=== PATIENT | male | born 1950 | race Caucasian/White ===

== ENCOUNTER 2018-01-02 15:05 | Emergency (ER) | payer MEDICARE ==
[~2018-01-02] VITALS: Ht 190.5 cm; Wt 117.0 kg
[~2018-01-02 15:05] MED LIST: AMLODIPINE-OLM1 EAC1 PO; ASPI81CH PO; ATOR20 PO; Aspirin EC81 MG PO; CLON.1 PO; CLON.5 PO; CODACE30 PO; ENALAPRIL MALEA PO; FAMO20 PO; HYDCHL25 PO; HYDMOR2 PO; HYDR-86 PO; HYDR1TAB94 PO; LIDO5TP TOP; LISI20 PO; LORA.5 PO; LORA1 PO; LOSA50 PO; MECL12.5 PO; METCAR750 PO; Metoprolol Tart50 MG PO; NEBI10 PO; SENEXON-S TABL1 EACH; Zofran Odt4 MG SL
[2018-01-02] MEDS ORDERED: GABA400 PO (15:21)
[2018-01-02 15:52] LABS: BASOPHILS ABSOLUTE AUTO 0.04 K/mm3 (0.00-0.23); BASOPHILS PERCENT AUTO 1 % (0-2); EOSINOPHILS ABSOLUTE AUTO 0.08 K/mm3 (0.00-0.68); EOSINOPHILS PERCENT AUTO 1 % (0-6); Hematocrit 47.2 % (37.0-53.0); IMMATURE GRAN ABSOLUTE AUTO 0.01 K/mm3 (0.00-0.10); IMMATURE GRAN PERCENT AUTO 0 % (0-1); LYMPHOCYTES ABSOLUTE AUTO 2.41 K/mm3 (0.84-5.20); LYMPHOCYTES PERCENT AUTO 37 % (21-46); MONOCYTES ABSOLUTE AUTO 0.51 K/mm3 (0.16-1.47); MONOCYTES PERCENT AUTO 8 % (4-13); Mean Corpuscular HGB 33.2 pg (26.0-34.0); Mean Corpuscular HGB Conc 33.9 g/dL (31.5-36.5); Mean Corpuscular Volume 98 fL (80-100); Mean Platelet Volume 10.8 fL (9.1-12.4); NEUTROPHILS ABSOLUTE AUTO 3.46 K/mm3 (1.96-9.15); NEUTROPHILS PERCENT AUTO 53 % (41-73); Platelet Count 234 K/mm3 (150-400); RDW Coefficient Variation 12.6 % (11.7-14.2); RDW Standard Deviation 45.2 fL (35.1-46.3); Red Blood Cell Count 4.82 M/mm3 (4.30-5.90); White Blood Cell Count 6.51 K/mm3 (4.00-11.30)
[2018-01-02 18:01] LABS: Alanine Aminotransfer (ALT/SGP 44 U/L (12-78); Albumin, Blood 4.5 g/dL (3.4-5.0); Albumin/Globulin Ratio 1.3 (0.8-1.8); Alk Phos 68 U/L (50-136); Anion Gap 4 mmol/L (6-16); Aspartate Aminotrans (AST/SGOT 32 U/L (12-37); Bilirubin, Total 0.6 mg/dL (0.1-1.0); Blood Urea Nitrogen 18 mg/dL (8-24); Bun/Creatinine Ratio 14.4 (12.0-20.0); CO2, Blood 29 mmol/L (21-32); Calcium, Blood 9.2 mg/dL (8.5-10.1); Chloride, Blood 107 mmol/L (98-108); Creatinine, Blood 1.25 mg/dL (0.60-1.20); Globulin, Blood 3.5 g/dL (2.2-4.0); Glomerular Filtration Rate >60 (60-); Glucose, Blood 86 mg/dL (70-99); Sodium, Blood 140 mmol/L (136-145)
== END 2018-01-02 21:39 | disposition home or self-care (01) ==
LOC: ER 15:05
PROVIDERS: Emergency Medicine
DX: R07.89 Other chest pain (principal); I10 Essential (primary) hypertension; Z87.891 Personal history of nicotine dependence; Z91.011 Allergy to milk products; Z88.6 Allergy status to analgesic agent; Z79.82 Long term (current) use of aspirin; Z79.899 Other long term (current) drug therapy
CPT/HCPCS: 36415; 71046; 80053; 83880; 84484; 85025; 93005; 93010; 99283

== ENCOUNTER 2020-01-11 09:33 | Emergency (ER) | payer MEDICARE ==
[~2020-01-11] VITALS: Ht 190.5 cm; Wt 108.9 kg
[~2020-01-11 09:33] MED LIST changes: +GABA400 PO
[2020-01-11] MEDS ORDERED: Venlafaxine HC225 MG PO (09:43)
[2020-01-11] MEDS ORDERED: Guanfacine HCl2 MG PO (09:43)
[2020-01-11 10:04] LABS: BASOPHILS ABSOLUTE AUTO 0.06 K/mm3 (0.00-0.23); BASOPHILS PERCENT AUTO 1 % (0-2); EOSINOPHILS ABSOLUTE AUTO 0.08 K/mm3 (0.00-0.68); EOSINOPHILS PERCENT AUTO 1 % (0-6); Hematocrit 41.5 % (37.0-53.0); IMMATURE GRAN ABSOLUTE AUTO 0.01 K/mm3 (0.00-0.10); IMMATURE GRAN PERCENT AUTO 0 % (0-1); LYMPHOCYTES ABSOLUTE AUTO 1.82 K/mm3 (0.84-5.20); LYMPHOCYTES PERCENT AUTO 25 % (21-46); MONOCYTES ABSOLUTE AUTO 0.52 K/mm3 (0.16-1.47); MONOCYTES PERCENT AUTO 7 % (4-13); Mean Corpuscular HGB 32.9 pg (26.0-34.0); Mean Corpuscular HGB Conc 33.7 g/dL (31.5-36.5); Mean Corpuscular Volume 97 fL (80-100); Mean Platelet Volume 11.3 fL (9.1-12.4); NEUTROPHILS ABSOLUTE AUTO 4.73 K/mm3 (1.96-9.15); NEUTROPHILS PERCENT AUTO 66 % (41-73); Platelet Count 181 K/mm3 (150-400); RDW Coefficient Variation 12.7 % (11.7-14.2); RDW Standard Deviation 45.3 fL (35.1-46.3); Red Blood Cell Count 4.26 M/mm3 (4.30-5.90); White Blood Cell Count 7.22 K/mm3 (4.00-11.30)
[2020-01-11 10:24] LABS: Alanine Aminotransfer (ALT/SGP 27 U/L (12-78); Albumin, Blood 3.6 g/dL (3.4-5.0); Albumin/Globulin Ratio 1.2 (0.8-1.8); Alk Phos 61 U/L (50-136); Anion Gap 4 mmol/L (6-16); Aspartate Aminotrans (AST/SGOT 21 U/L (12-37); Bilirubin, Total 0.7 mg/dL (0.1-1.0); Blood Urea Nitrogen 15 mg/dL (8-24); Bun/Creatinine Ratio 14.7 (12.0-20.0); CO2, Blood 27 mmol/L (21-32); Calcium, Blood 8.3 mg/dL (8.5-10.1); Chloride, Blood 109 mmol/L (98-108); Creatinine, Blood 1.02 mg/dL (0.60-1.20); Glomerular Filtration Rate >60 (60-); Glucose, Blood 95 mg/dL (70-99); Potassium, Blood 4.3 mmol/L (3.5-5.5); Sodium, Blood 140 mmol/L (136-145); Total Protein, Blood 6.6 g/dL (6.4-8.2); Troponin I <0.015 ng/mL (0.000-0.040)
[2020-01-11] MEDS ORDERED: Lasix20 MG PO (11:32)
[2020-01-11] MEDS ORDERED: K-Dur10 MEQ PO (11:32)
== END 2020-01-11 12:40 | disposition home or self-care (01) ==
LOC: ER 09:33
PROVIDERS: Physician Assistant
DX: I11.0 Hypertensive heart disease with heart failure (principal); I50.9 Heart failure, unspecified; F41.9 Anxiety disorder, unspecified; R06.01 Orthopnea; I25.10 Atherosclerotic heart disease of native coronary artery without angina pectoris; Z88.6 Allergy status to analgesic agent; Z91.011 Allergy to milk products; Z79.82 Long term (current) use of aspirin; Z79.899 Other long term (current) drug therapy
CPT/HCPCS: 71046; 80053; 83880; 84484; 85025; 93005; 93010; 96374; 96375; 99285-25; J1940; J2060

== ENCOUNTER 2020-02-24 14:55 | Emergency (ER) | payer MEDICARE ==
[~2020-02-24] VITALS: Ht 182.9 cm; Wt 97.5 kg
[~2020-02-24 14:55] MED LIST changes: +Guanfacine HCl2 MG PO; +K-Dur10 MEQ PO; +Lasix20 MG PO; +Venlafaxine HC225 MG PO
[2020-02-24 15:44] LABS: BASOPHILS ABSOLUTE AUTO 0.03 K/mm3 (0.00-0.23); BASOPHILS PERCENT AUTO 1 % (0-2); EOSINOPHILS ABSOLUTE AUTO 0.08 K/mm3 (0.00-0.68); EOSINOPHILS PERCENT AUTO 1 % (0-6); Hemoglobin 13.2 g/dL (13.5-17.5); IMMATURE GRAN ABSOLUTE AUTO 0.02 K/mm3 (0.00-0.10); IMMATURE GRAN PERCENT AUTO 0 % (0-1); LYMPHOCYTES ABSOLUTE AUTO 1.63 K/mm3 (0.84-5.20); LYMPHOCYTES PERCENT AUTO 29 % (21-46); MONOCYTES ABSOLUTE AUTO 0.84 K/mm3 (0.16-1.47); MONOCYTES PERCENT AUTO 15 % (4-13); Mean Corpuscular HGB 32.8 pg (26.0-34.0); Mean Corpuscular Volume 99 fL (80-100); Mean Platelet Volume 11.5 fL (9.1-12.4); NEUTROPHILS ABSOLUTE AUTO 3.07 K/mm3 (1.96-9.15); NEUTROPHILS PERCENT AUTO 54 % (41-73); Platelet Count 169 K/mm3 (150-400); RDW Coefficient Variation 12.7 % (11.7-14.2); RDW Standard Deviation 46.5 fL (35.1-46.3); Red Blood Cell Count 4.03 M/mm3 (4.30-5.90); White Blood Cell Count 5.67 K/mm3 (4.00-11.30)
[2020-02-24 15:56] LABS: International Normalized Ratio 1.12; Prothrombin Time Results 11.9 Sec (9.7-11.5)
[2020-02-24 15:59] LABS: Albumin, Blood 3.6 g/dL (3.4-5.0); Albumin/Globulin Ratio 1.1 (0.8-1.8); Bilirubin, Total 0.5 mg/dL (0.1-1.0); Bun/Creatinine Ratio 11.5 (12.0-20.0); Calcium, Blood 8.5 mg/dL (8.5-10.1); Creatinine, Blood 1.57 mg/dL (0.60-1.20); Globulin, Blood 3.2 g/dL (2.2-4.0); Potassium, Blood 3.8 mmol/L (3.5-5.5); Total Protein, Blood 6.8 g/dL (6.4-8.2)
== END 2020-02-24 18:02 | disposition home or self-care (01) ==
LOC: ER 14:55
PROVIDERS: Physician Assistant
DX: G45.9 Transient cerebral ischemic attack, unspecified (principal); Z88.6 Allergy status to analgesic agent; Z91.011 Allergy to milk products; Z79.82 Long term (current) use of aspirin; Z79.899 Other long term (current) drug therapy; I10 Essential (primary) hypertension; I25.810 Atherosclerosis of coronary artery bypass graft(s) without angina pectoris; F41.9 Anxiety disorder, unspecified
CPT/HCPCS: 36415; 70450; 80053; 85025; 85610; 85730; 93005; 93010; 99285-25

== ENCOUNTER → 2021-05-12 | Outpatient (CLI) | payer OTHER ==
[2021-05-12 14:43] LABS: BASOPHILS ABSOLUTE AUTO 0.03 K/mm3 (0.00-0.23); BASOPHILS PERCENT AUTO 1 % (0-2); EOSINOPHILS ABSOLUTE AUTO 0.05 K/mm3 (0.00-0.68); EOSINOPHILS PERCENT AUTO 1 % (0-6); Hematocrit 44.9 % (37.0-53.0); Hemoglobin 15.6 g/dL (13.5-17.5); IMMATURE GRAN ABSOLUTE AUTO 0.01 K/mm3 (0.00-0.10); IMMATURE GRAN PERCENT AUTO 0 % (0-1); LYMPHOCYTES ABSOLUTE AUTO 1.51 K/mm3 (0.84-5.20); LYMPHOCYTES PERCENT AUTO 26 % (21-46); MONOCYTES ABSOLUTE AUTO 0.89 K/mm3 (0.16-1.47); MONOCYTES PERCENT AUTO 15 % (4-13); Mean Corpuscular HGB 33.3 pg (26.0-34.0); Mean Corpuscular HGB Conc 34.7 g/dL (31.5-36.5); Mean Corpuscular Volume 96 fL (80-100); Mean Platelet Volume 11.6 fL (9.1-12.4); NEUTROPHILS ABSOLUTE AUTO 3.43 K/mm3 (1.96-9.15); NEUTROPHILS PERCENT AUTO 58 % (41-73); Platelet Count 185 K/mm3 (150-400); RDW Coefficient Variation 12.9 % (11.7-14.2); RDW Standard Deviation 45.3 fL (35.1-46.3); Red Blood Cell Count 4.69 M/mm3 (4.30-5.90); White Blood Cell Count 5.92 K/mm3 (4.00-11.30)
[2021-05-12 14:57] LABS: Albumin, Blood 4.4 g/dL (3.4-5.0); Albumin/Globulin Ratio 1.1 (0.8-1.8); Bilirubin, Total 0.5 mg/dL (0.1-1.0); Calcium, Blood 9.2 mg/dL (8.5-10.1); Creatinine, Blood 1.27 mg/dL (0.60-1.20); Globulin, Blood 3.9 g/dL (2.2-4.0); Potassium, Blood 4.1 mmol/L (3.5-5.5); Total Protein, Blood 8.3 g/dL (6.4-8.2)
== END | disposition home or self-care (01) ==
LOC: LAB 14:39 → LAB SHORT 14:39
PROVIDERS: General Practice
DX: I10 Essential (primary) hypertension (principal)
CPT/HCPCS: 80053; 85025

== ENCOUNTER 2021-06-03 03:46 | Emergency (ER) | payer OTHER ==
[~2021-06-03] VITALS: Ht 182.9 cm; Wt 108.9 kg
[2021-06-03 04:06] LABS: BASOPHILS ABSOLUTE AUTO 0.02 K/mm3 (0.00-0.23); BASOPHILS PERCENT AUTO 0 % (0-2); EOSINOPHILS ABSOLUTE AUTO 0.16 K/mm3 (0.00-0.68); EOSINOPHILS PERCENT AUTO 1 % (0-6); Hematocrit 45.4 % (37.0-53.0); Hemoglobin 15.5 g/dL (13.5-17.5); IMMATURE GRAN ABSOLUTE AUTO 0.05 K/mm3 (0.00-0.10); IMMATURE GRAN PERCENT AUTO 0 % (0-1); LYMPHOCYTES ABSOLUTE AUTO 4.37 K/mm3 (0.84-5.20); LYMPHOCYTES PERCENT AUTO 31 % (21-46); MONOCYTES ABSOLUTE AUTO 1.18 K/mm3 (0.16-1.47); MONOCYTES PERCENT AUTO 8 % (4-13); Mean Corpuscular HGB 32.4 pg (26.0-34.0); Mean Corpuscular HGB Conc 34.1 g/dL (31.5-36.5); Mean Corpuscular Volume 95 fL (80-100); NEUTROPHILS ABSOLUTE AUTO 8.28 K/mm3 (1.96-9.15); NEUTROPHILS PERCENT AUTO 59 % (41-73); Platelet Count 255 K/mm3 (150-400); RDW Coefficient Variation 11.9 % (11.7-14.2); RDW Standard Deviation 41.9 fL (35.1-46.3); Red Blood Cell Count 4.78 M/mm3 (4.30-5.90); White Blood Cell Count 14.06 K/mm3 (4.00-11.30)
[2021-06-03 04:21] LABS: Anion Gap 4 mmol/L (6-16); Blood Urea Nitrogen 36 mg/dL (8-24); CO2, Blood 29 mmol/L (21-32); Calcium, Blood 8.4 mg/dL (8.5-10.1); Chloride, Blood 108 mmol/L (98-108); Ethanol (Alcohol), Blood, Med <3 mg/dL; Glomerular Filtration Rate 46 (60-); Glucose, Blood 128 mg/dL (70-99); Potassium, Blood 3.7 mmol/L (3.5-5.5); Sodium, Blood 141 mmol/L (136-145)
[2021-06-03 04:25] LABS: International Normalized Ratio 1.15; Prothrombin Time Results 12.3 Sec (9.7-11.5)
[2021-06-03] MEDS ORDERED: FURO40 PO (04:39)
[2021-06-03] MEDS ORDERED: METO50 PO (04:40)
[2021-06-03] MEDS ORDERED: DULOXETINE HCL60 M1 PO (04:41)
[2021-06-03] MEDS ORDERED: LOSA50 PO (04:42)
[2021-06-03] MEDS ORDERED: XARELTO20 MG PO (04:43)
[2021-06-03] MEDS ORDERED: CELEBREX200 MG PO (04:43)
[2021-06-03] MEDS ORDERED: AMLO10 PO (04:45)
[2021-06-03 05:32] LABS: SARS-Cov-2 (COVID-19) PCR, MMC POSITIVE (NEGATIVE)
== END 2021-06-03 05:31 | disposition short-term general hospital (02) ==
LOC: ER 03:46
PROVIDERS: Student in an Organized Health Care Education/Training Program
DX: I61.9 Nontraumatic intracerebral hemorrhage, unspecified (principal); U07.1 COVID-19; I10 Essential (primary) hypertension; I25.10 Atherosclerotic heart disease of native coronary artery without angina pectoris; Z88.6 Allergy status to analgesic agent; Z91.011 Allergy to milk products; Z79.01 Long term (current) use of anticoagulants; Z79.899 Other long term (current) drug therapy; Z79.82 Long term (current) use of aspirin
CPT/HCPCS: 36415; 70450; 80048; 85025; 85610; 93005; 93010; 96374; 99285-25; G0480; J7168; U0004

== ENCOUNTER 2021-08-30 18:24 | Observation (INO) | payer OTHER ==
[~2021-08-30] VITALS: Ht 190.5 cm; Wt 120.0 kg
[~2021-08-30 18:24] MED LIST changes: +AMLO10 PO; +CELEBREX200 MG PO; +DULOXETINE HCL60 M1 PO; +FURO40 PO; +METO50 PO; +XARELTO20 MG PO
[2021-08-30 18:42] LABS: BASOPHILS ABSOLUTE AUTO 0.04 K/mm3 (0.00-0.23); BASOPHILS PERCENT AUTO 1 % (0-2); EOSINOPHILS ABSOLUTE AUTO 0.09 K/mm3 (0.00-0.68); EOSINOPHILS PERCENT AUTO 1 % (0-6); Hematocrit 42.9 % (37.0-53.0); Hemoglobin 14.5 g/dL (13.5-17.5); IMMATURE GRAN ABSOLUTE AUTO 0.01 K/mm3 (0.00-0.10); IMMATURE GRAN PERCENT AUTO 0 % (0-1); LYMPHOCYTES ABSOLUTE AUTO 2.03 K/mm3 (0.84-5.20); LYMPHOCYTES PERCENT AUTO 31 % (21-46); MONOCYTES ABSOLUTE AUTO 0.65 K/mm3 (0.16-1.47); MONOCYTES PERCENT AUTO 10 % (4-13); Mean Corpuscular HGB 33.2 pg (26.0-34.0); Mean Corpuscular HGB Conc 33.8 g/dL (31.5-36.5); Mean Corpuscular Volume 98 fL (80-100); Mean Platelet Volume 10.5 fL (9.1-12.4); NEUTROPHILS ABSOLUTE AUTO 3.74 K/mm3 (1.96-9.15); NEUTROPHILS PERCENT AUTO 57 % (41-73); Platelet Count 290 K/mm3 (150-400); RDW Coefficient Variation 12.6 % (11.7-14.2); RDW Standard Deviation 45.5 fL (35.1-46.3); Red Blood Cell Count 4.37 M/mm3 (4.30-5.90); White Blood Cell Count 6.56 K/mm3 (4.00-11.30)
[2021-08-30 19:00] LABS: Albumin, Blood 3.5 g/dL (3.4-5.0); Bilirubin, Total 0.2 mg/dL (0.1-1.0); Bun/Creatinine Ratio 12.4 (12.0-20.0); Calcium, Blood 8.7 mg/dL (8.5-10.1); Creatinine, Blood 1.29 mg/dL (0.60-1.20); Globulin, Blood 3.5 g/dL (2.2-4.0); International Normalized Ratio 1.13; Prothrombin Time Results 11.8 Sec (9.7-11.5)
[2021-08-31] MEDS ORDERED: GABA800 PO (00:08)
[2021-08-31] MEDS ORDERED: POTA10T PO (00:13)
[2021-08-31] MEDS ORDERED: Robaxin750 MG (00:15)
[2021-08-31 04:21] LABS: BASOPHILS ABSOLUTE AUTO 0.04 K/mm3 (0.00-0.23); BASOPHILS PERCENT AUTO 1 % (0-2); EOSINOPHILS ABSOLUTE AUTO 0.11 K/mm3 (0.00-0.68); EOSINOPHILS PERCENT AUTO 2 % (0-6); Hematocrit 40.7 % (37.0-53.0); Hemoglobin 13.6 g/dL (13.5-17.5); IMMATURE GRAN ABSOLUTE AUTO 0.01 K/mm3 (0.00-0.10); IMMATURE GRAN PERCENT AUTO 0 % (0-1); LYMPHOCYTES ABSOLUTE AUTO 2.64 K/mm3 (0.84-5.20); LYMPHOCYTES PERCENT AUTO 37 % (21-46); MONOCYTES ABSOLUTE AUTO 0.63 K/mm3 (0.16-1.47); MONOCYTES PERCENT AUTO 9 % (4-13); Mean Corpuscular HGB 32.8 pg (26.0-34.0); Mean Corpuscular HGB Conc 33.4 g/dL (31.5-36.5); Mean Corpuscular Volume 98 fL (80-100); Mean Platelet Volume 10.9 fL (9.1-12.4); NEUTROPHILS ABSOLUTE AUTO 3.71 K/mm3 (1.96-9.15); NEUTROPHILS PERCENT AUTO 52 % (41-73); Platelet Count 258 K/mm3 (150-400); RDW Coefficient Variation 12.6 % (11.7-14.2); RDW Standard Deviation 45.7 fL (35.1-46.3); Red Blood Cell Count 4.15 M/mm3 (4.30-5.90); White Blood Cell Count 7.14 K/mm3 (4.00-11.30)
[2021-08-31 04:50] LABS: Alanine Aminotransfer (ALT/SGP 31 U/L (12-78); Albumin, Blood 3.2 g/dL (3.4-5.0); Alk Phos 64 U/L (50-136); Anion Gap 6 mmol/L (6-16); Aspartate Aminotrans (AST/SGOT 19 U/L (12-37); Bilirubin, Total 0.3 mg/dL (0.1-1.0); Blood Urea Nitrogen 16 mg/dL (8-24); Bun/Creatinine Ratio 13.3 (12.0-20.0); CO2, Blood 29 mmol/L (21-32); Calcium, Blood 8.9 mg/dL (8.5-10.1); Chloride, Blood 108 mmol/L (98-108); Globulin, Blood 3.2 g/dL (2.2-4.0); Glomerular Filtration Rate >60 (60-); Glucose, Blood 114 mg/dL (70-99); Potassium, Blood 3.5 mmol/L (3.5-5.5); Sodium, Blood 143 mmol/L (136-145); Total Protein, Blood 6.4 g/dL (6.4-8.2)
[2021-08-31 04:56] LABS: Source, Urine Clean Catch
[2021-08-31 05:03] LABS: Bilirubin, Urine Neg (Neg); Blood, Urine Neg (Neg); Glucose Qualitative, Urine 4+ (Neg); Ketones, Urine Neg (Neg); Leukocyte Esterase, Urine Neg (Neg); Nitrite, Urine Neg (Neg); Protein, Urine 1+ (Neg); Specific Gravity, Urine 1.015 (1.003-1.022); Urobilinogen, Urine NORM (Normal)
[2021-08-31 05:10] LABS: Appearance, Urine Clear (Clear); Color, Urine Yellow (P-Yellow)
--- NOTE | 2021-08-31 06:36 | NUR ---
SHIFT SUMMARY PT RESTED WELL THROUGH THE NIGHT. ALERT AND ORIENTED, WHEN PATIENT ARRIVED TO THE FLOOR, NO SIGNS OF STROKE SYMPTOMS ANYMORE, BUT IS A LITTLE SLOW TO RESPOND AND JUST SEEMS A LITTLE FOGGY HEADED. PASSED SWALLOW EVAL. TELE NSR. NO C/O CHEST PAIN. SATS >93% ON ROOM AIR, WEARS CPAP AT NIGHT. VOIDS TO URINAL - UA NEGATIVE. IVF RUNNING AT 75/HR. [facility] FOLLOWING FOR RECS. VSS. NO C/O PAIN. BED/CHAIR ALARM ON. CALL LIGHT WITHIN REACH, BED IN LOWEST POSITION. WILL CONTINUE TO MONITOR.
--- NOTE | 2021-08-31 10:04 | NUR ---
CARE ASSUMPTION THIS RN ASSUMED CARE FROM JUDY RN AT 0700. PATIENT IS A/OX4. VSS. PATIENT REPORTS NO CHEST PAIN, PAIN, OR SOB. PATIENT DID STATE HE IS SENSITIVE TO THE LIGHTS AND ASKED FOR THE LIGHTS TO REMAIN OFF, BLINDS CLOSED, AND DOOR SHUT. PATIENT NEURO CHECK WAS WITHIN NORMAL LIMITS, AND WILL CONTINUE TO MONITOR. BED IN LOWEST POSITION AND CALL LIGHT WITHIN REACH. WILL CONTINUE TO MONITOR AND PROVIDE CARE.
--- NOTE | 2021-08-31 15:28 | NUR ---
DISCHARGE THIS RN PROVIDED DISCHARGE INSTRUCTIONS TO THE PATIENT AND HIS . THEY BOTH VERBALIZED UNDERSTANDING. PATIENT HAD ALL BELONGINGS AND LEFT VIA WHEELCHAIR. BOTH IVS WERE REMOVED.
== END 2021-08-31 15:29 | disposition home or self-care (01) ==
LOC: ER 18:24 → PCU 18:25
PROVIDERS: Physician Assistant; ADMIT Internal Medicine
DX: G45.9 Transient cerebral ischemic attack, unspecified (principal); I25.10 Atherosclerotic heart disease of native coronary artery without angina pectoris; I13.0 Hypertensive heart and chronic kidney disease with heart failure and stage 1 through stage 4 chronic kidney disease, or unspecified chronic kidney disease; N18.2 Chronic kidney disease, stage 2 (mild); I50.30 Unspecified diastolic (congestive) heart failure; M25.512 Pain in left shoulder; I70.90 Unspecified atherosclerosis; E78.5 Hyperlipidemia, unspecified; Z95.1 Presence of aortocoronary bypass graft; Z88.6 Allergy status to analgesic agent; Z91.011 Allergy to milk products
CPT/HCPCS: 36415; 70450; 70496; 70498; 73030; 80053; 82947; 85025; 85610; 93005; 93010; 94660; 94762; 97165; 97530; 97535; A9270; J7030; Q9967

== ENCOUNTER 2022-04-08 09:52 | Emergency (ER) | payer OTHER ==
[~2022-04-08] VITALS: Ht 190.5 cm; Wt 110.2 kg
[~2022-04-08 09:52] MED LIST changes: +GABA800 PO; +POTA10T PO; +Robaxin750 MG
[2022-04-08] MEDS ORDERED: ONDA4ODT MM (12:50)
[2022-04-08] MEDS ORDERED: Colace250 MG PO (12:50)
[2022-04-08] MEDS ORDERED: CRUTCH4 XX (12:51)
== END 2022-04-08 13:45 | disposition home or self-care (01) ==
LOC: ER 09:52
DX: S82.52XA Displaced fracture of medial malleolus of left tibia, initial encounter for closed fracture (principal); S93.402A Sprain of unspecified ligament of left ankle, initial encounter; I10 Essential (primary) hypertension; X50.1XXA Overexertion from prolonged static or awkward postures, initial encounter; Z86.73 Personal history of transient ischemic attack (TIA), and cerebral infarction without residual deficits; Z95.1 Presence of aortocoronary bypass graft; Z87.891 Personal history of nicotine dependence; Z79.82 Long term (current) use of aspirin; Z79.899 Other long term (current) drug therapy
CPT/HCPCS: 73600; 73610; 73700; A9270; J2270; J2704

== ENCOUNTER 2022-04-08 15:34 | Emergency (ER) | payer OTHER ==
[~2022-04-08] VITALS: Ht 190.5 cm; Wt 108.9 kg
[~2022-04-08 15:34] MED LIST changes: +CRUTCH4 XX; +Colace250 MG PO; +ONDA4ODT MM
[2022-04-08 18:00] LABS: BASOPHILS ABSOLUTE AUTO 0.01 K/mm3 (0.00-0.23); BASOPHILS PERCENT AUTO 0 % (0-2); EOSINOPHILS ABSOLUTE AUTO 0.03 K/mm3 (0.00-0.68); EOSINOPHILS PERCENT AUTO 0 % (0-6); Hematocrit 44.9 % (37.0-53.0); Hemoglobin 14.5 g/dL (13.5-17.5); IMMATURE GRAN ABSOLUTE AUTO 0.02 K/mm3 (0.00-0.10); IMMATURE GRAN PERCENT AUTO 0 % (0-1); LYMPHOCYTES ABSOLUTE AUTO 1.56 K/mm3 (0.84-5.20); LYMPHOCYTES PERCENT AUTO 16 % (21-46); MONOCYTES ABSOLUTE AUTO 0.85 K/mm3 (0.16-1.47); MONOCYTES PERCENT AUTO 9 % (4-13); Mean Corpuscular HGB 32.3 pg (26.0-34.0); Mean Corpuscular HGB Conc 32.3 g/dL (31.5-36.5); Mean Corpuscular Volume 100 fL (80-100); Mean Platelet Volume 11.6 fL (9.1-12.4); NEUTROPHILS ABSOLUTE AUTO 7.35 K/mm3 (1.96-9.15); NEUTROPHILS PERCENT AUTO 75 % (41-73); Platelet Count 171 K/mm3 (150-400); RDW Coefficient Variation 12.8 % (11.7-14.2); RDW Standard Deviation 47.4 fL (35.1-46.3); Red Blood Cell Count 4.49 M/mm3 (4.30-5.90); White Blood Cell Count 9.82 K/mm3 (4.00-11.30)
[2022-04-08 18:19] LABS: Magnesium, Blood 2.5 mg/dL (1.6-2.4)
[2022-04-08 18:21] LABS: Albumin, Blood 3.9 g/dL (3.4-5.0); Albumin/Globulin Ratio 1.2 (0.8-1.8); Bilirubin, Total 1.3 mg/dL (0.1-1.0); Bun/Creatinine Ratio 14.3 (12.0-20.0); Creatinine, Blood 1.19 mg/dL (0.60-1.20); Globulin, Blood 3.2 g/dL (2.2-4.0); Potassium, Blood 4.5 mmol/L (3.5-5.5); Total Protein, Blood 7.1 g/dL (6.4-8.2)
== END 2022-04-08 22:20 | disposition home or self-care (01) ==
LOC: ER 15:34
PROVIDERS: Student in an Organized Health Care Education/Training Program
DX: R55 Syncope and collapse (principal); E86.0 Dehydration; S82.892A Other fracture of left lower leg, initial encounter for closed fracture; W19.XXXA Unspecified fall, initial encounter; I10 Essential (primary) hypertension; I25.10 Atherosclerotic heart disease of native coronary artery without angina pectoris; Z88.6 Allergy status to analgesic agent; Z91.011 Allergy to milk products; Z79.899 Other long term (current) drug therapy
CPT/HCPCS: 71045; 80053; 82947; 83735; 83880; 84484; 85025; A9270; J2270; J7030

== ENCOUNTER 2022-04-10 13:25 | Emergency (ER) | payer OTHER ==
[~2022-04-10] VITALS: Ht 190.5 cm; Wt 112.0 kg
[2022-04-10 17:06] LABS: BASOPHILS ABSOLUTE AUTO 0.02 K/mm3 (0.00-0.23); BASOPHILS PERCENT AUTO 0 % (0-2); EOSINOPHILS ABSOLUTE AUTO 0.06 K/mm3 (0.00-0.68); EOSINOPHILS PERCENT AUTO 1 % (0-6); Hematocrit 42.1 % (37.0-53.0); Hemoglobin 14.1 g/dL (13.5-17.5); IMMATURE GRAN ABSOLUTE AUTO 0.02 K/mm3 (0.00-0.10); IMMATURE GRAN PERCENT AUTO 0 % (0-1); LYMPHOCYTES PERCENT AUTO 20 % (21-46); MONOCYTES ABSOLUTE AUTO 0.97 K/mm3 (0.16-1.47); MONOCYTES PERCENT AUTO 13 % (4-13); Mean Corpuscular HGB 32.7 pg (26.0-34.0); Mean Corpuscular HGB Conc 33.5 g/dL (31.5-36.5); Mean Corpuscular Volume 98 fL (80-100); Mean Platelet Volume 11.2 fL (9.1-12.4); NEUTROPHILS ABSOLUTE AUTO 5.09 K/mm3 (1.96-9.15); NEUTROPHILS PERCENT AUTO 66 % (41-73); Platelet Count 153 K/mm3 (150-400); RDW Coefficient Variation 12.9 % (11.7-14.2); RDW Standard Deviation 46.5 fL (35.1-46.3); Red Blood Cell Count 4.31 M/mm3 (4.30-5.90); White Blood Cell Count 7.66 K/mm3 (4.00-11.30)
[2022-04-10 17:22] LABS: Albumin, Blood 3.7 g/dL (3.4-5.0); Albumin/Globulin Ratio 1.1 (0.8-1.8); Bun/Creatinine Ratio 13.2 (12.0-20.0); Calcium, Blood 9.4 mg/dL (8.5-10.1); Creatinine, Blood 1.21 mg/dL (0.60-1.20); Globulin, Blood 3.4 g/dL (2.2-4.0); Potassium, Blood 3.8 mmol/L (3.5-5.5); Total Protein, Blood 7.1 g/dL (6.4-8.2)
[2022-04-10 17:35] LABS: Source, Urine Clean Catch
[2022-04-10 17:39] LABS: Bilirubin, Urine Neg (Neg); Blood, Urine 1+ (Neg); Color, Urine Yellow (P-Yellow); Glucose Qualitative, Urine Neg (Neg); Ketones, Urine Neg (Neg); Leukocyte Esterase, Urine Neg (Neg); Nitrite, Urine Neg (Neg); Protein, Urine Neg (Neg); Urobilinogen, Urine NORM (Normal)
[2022-04-10 18:04] LABS: Appearance, Urine Clear (Clear)
[2022-04-10 18:21] LABS: Influenza A, PCR NEGATIVE (NEGATIVE); Influenza B, PCR NEGATIVE (NEGATIVE); Resp Syncytial Virus, PCR NEGATIVE (NEGATIVE); SARS-Cov-2 (COVID-19) PCR, MMC NEGATIVE (NEGATIVE)
[2022-04-10 18:44] LABS: Bacteria Not Seen /hpf; Red Blood Cells, Urine 0-2 /hpf (0-2); Squamous Epithelial Cells Rare /hpf (Few); White Blood Cells, Urine 0-2 /hpf (0-5)
== END 2022-04-10 20:12 | disposition home or self-care (01) ==
LOC: ER 13:25
PROVIDERS: Student in an Organized Health Care Education/Training Program
DX: R53.1 Weakness (principal); R74.01 Elevation of levels of liver transaminase levels; S82.892D Other fracture of left lower leg, subsequent encounter for closed fracture with routine healing; W19.XXXD Unspecified fall, subsequent encounter; I10 Essential (primary) hypertension; I25.10 Atherosclerotic heart disease of native coronary artery without angina pectoris; I25.2 Old myocardial infarction; G62.9 Polyneuropathy, unspecified; Z20.822 Contact with and (suspected) exposure to COVID-19
CPT/HCPCS: 0241U; 36415; 71045; 80053; 81001; 85025

== ENCOUNTER 2023-03-07 10:17 | Emergency (ER) | payer OTHER ==
[~2023-03-07] VITALS: Ht 190.5 cm; Wt 112.5 kg
[2023-03-07 12:22] LABS: Source, Urine Clean Catch
[2023-03-07 12:26] LABS: BASOPHILS ABSOLUTE AUTO 0.02 K/mm3 (0.00-0.23); BASOPHILS PERCENT AUTO 0 % (0-2); EOSINOPHILS ABSOLUTE AUTO 0.03 K/mm3 (0.00-0.68); EOSINOPHILS PERCENT AUTO 0 % (0-6); Hematocrit 42.4 % (37.0-53.0); Hemoglobin 14.5 g/dL (13.5-17.5); IMMATURE GRAN ABSOLUTE AUTO 0.01 K/mm3 (0.00-0.10); IMMATURE GRAN PERCENT AUTO 0 % (0-1); LYMPHOCYTES ABSOLUTE AUTO 1.45 K/mm3 (0.84-5.20); LYMPHOCYTES PERCENT AUTO 21 % (21-46); MONOCYTES ABSOLUTE AUTO 0.59 K/mm3 (0.16-1.47); MONOCYTES PERCENT AUTO 9 % (4-13); Mean Corpuscular HGB 32.7 pg (26.0-34.0); Mean Corpuscular HGB Conc 34.2 g/dL (31.5-36.5); Mean Corpuscular Volume 96 fL (80-100); Mean Platelet Volume 11.5 fL (9.1-12.4); NEUTROPHILS ABSOLUTE AUTO 4.72 K/mm3 (1.96-9.15); NEUTROPHILS PERCENT AUTO 69 % (41-73); Platelet Count 184 K/mm3 (150-400); RDW Coefficient Variation 13.1 % (11.7-14.2); RDW Standard Deviation 46.5 fL (35.1-46.3); Red Blood Cell Count 4.43 M/mm3 (4.30-5.90); White Blood Cell Count 6.82 K/mm3 (4.00-11.30)
[2023-03-07 12:45] LABS: Alanine Aminotransfer (ALT/SGP 61 U/L (12-78); Albumin, Blood 3.4 g/dL (3.4-5.0); Albumin/Globulin Ratio 1.1 (0.8-1.8); Alk Phos 83 U/L (50-136); Anion Gap Unable to Calculate mmol/L (6-16); Aspartate Aminotrans (AST/SGOT 48 U/L (12-37); Bilirubin, Total 0.5 mg/dL (0.1-1.0); Blood Urea Nitrogen 14 mg/dL (8-24); Bun/Creatinine Ratio 12.1 (12.0-20.0); CO2, Blood 32 mmol/L (21-32); Calcium, Blood 8.5 mg/dL (8.5-10.1); Chloride, Blood 110 mmol/L (98-108); Creatinine, Blood 1.16 mg/dL (0.60-1.20); Glomerular Filtration Rate 68 (60-); Glucose, Blood 100 mg/dL (70-99); Potassium, Blood 3.9 mmol/L (3.5-5.5); Sodium, Blood 141 mmol/L (136-145); Total Protein, Blood 6.4 g/dL (6.4-8.2)
[2023-03-07 12:47] LABS: Appearance, Urine Clear (Clear); Bilirubin, Urine Neg (Neg); Blood, Urine Neg (Neg); Color, Urine Yellow (P-Yellow); Glucose Qualitative, Urine Neg (Neg); Ketones, Urine Neg (Neg); Leukocyte Esterase, Urine Neg (Neg); Nitrite, Urine Neg (Neg); Protein, Urine Neg (Neg); Specific Gravity, Urine 1.015 (1.003-1.022); Urobilinogen, Urine NORM (Normal)
[2023-03-07 14:15] VITALS: BP 153/80
[2023-03-07] MEDS ORDERED: HYDR1TAB94 PO (18:41)
== END 2023-03-07 18:51 | disposition home or self-care (01) ==
LOC: ER 10:17
PROVIDERS: Emergency Medicine
DX: R29.6 Repeated falls (principal); S09.90XA Unspecified injury of head, initial encounter; S40.011A Contusion of right shoulder, initial encounter; M54.50 Low back pain, unspecified; G89.29 Other chronic pain; I10 Essential (primary) hypertension; I25.10 Atherosclerotic heart disease of native coronary artery without angina pectoris; I25.2 Old myocardial infarction; E78.5 Hyperlipidemia, unspecified; Z91.011 Allergy to milk products; Z88.6 Allergy status to analgesic agent; Z79.02 Long term (current) use of antithrombotics/antiplatelets; Z79.01 Long term (current) use of anticoagulants; Z79.82 Long term (current) use of aspirin; Z79.899 Other long term (current) drug therapy; W19.XXXA Unspecified fall, initial encounter
CPT/HCPCS: 70450; 72125; 72131; 73030; 80053; 81003; 85025; 96374; 96376; 97112; 97162; 97530; 99285-25; J2270

== ENCOUNTER → 2024-05-06 | Outpatient (CLI) | payer OTHER ==
[2024-05-06 10:54] LABS: BASOPHILS ABSOLUTE AUTO 0.04 K/mm3 (0.00-0.23); BASOPHILS PERCENT AUTO 1 % (0-2); EOSINOPHILS ABSOLUTE AUTO 0.12 K/mm3 (0.00-0.68); EOSINOPHILS PERCENT AUTO 2 % (0-6); Hematocrit 44.9 % (37.0-53.0); Hemoglobin 15.4 g/dL (13.5-17.5); IMMATURE GRAN ABSOLUTE AUTO 0.01 K/mm3 (0.00-0.10); IMMATURE GRAN PERCENT AUTO 0 % (0-1); LYMPHOCYTES ABSOLUTE AUTO 1.68 K/mm3 (0.84-5.20); LYMPHOCYTES PERCENT AUTO 25 % (21-46); MONOCYTES ABSOLUTE AUTO 0.63 K/mm3 (0.16-1.47); MONOCYTES PERCENT AUTO 9 % (4-13); Mean Corpuscular HGB 32.7 pg (26.0-34.0); Mean Corpuscular HGB Conc 34.3 g/dL (31.5-36.5); Mean Corpuscular Volume 95 fL (80-100); Mean Platelet Volume 11.7 fL (9.1-12.4); NEUTROPHILS ABSOLUTE AUTO 4.39 K/mm3 (1.96-9.15); NEUTROPHILS PERCENT AUTO 64 % (41-73); Platelet Count 213 K/mm3 (150-400); RDW Coefficient Variation 13.5 % (11.7-14.2); RDW Standard Deviation 47.5 fL (35.1-46.3); Red Blood Cell Count 4.71 M/mm3 (4.30-5.90); White Blood Cell Count 6.87 K/mm3 (4.00-11.30)
[2024-05-06 11:05] LABS: Albumin, Blood 3.7 g/dL (3.4-5.0); Albumin/Globulin Ratio 1.1 (0.8-1.8); Bilirubin, Total 0.6 mg/dL (0.1-1.0); Bun/Creatinine Ratio 10.1 (12.0-20.0); Calcium, Blood 8.6 mg/dL (8.5-10.1); Creatinine, Blood 1.29 mg/dL (0.60-1.20); Globulin, Blood 3.5 g/dL (2.2-4.0); Potassium, Blood 4.3 mmol/L (3.5-5.5); Total Protein, Blood 7.2 g/dL (6.4-8.2)
== END | disposition home or self-care (01) ==
LOC: LAB 10:49 → LAB SHORT 10:49
PROVIDERS: Family Medicine
DX: R07.89 Other chest pain (principal)
CPT/HCPCS: 80053; 84484; 85025; 85379

== ENCOUNTER 2024-06-16 17:00 | Inpatient (IN) | payer OTHER ==
[~2024-06-16] VITALS: Ht 190.5 cm; Wt 125.3 kg
[~2024-06-16 17:00] MED LIST changes: -ALDACTONE25 MG PO; -ATOR40TA PO; -DOCUZEN 8.6-501 EACH PO; -ELIQUIS5 M2 PO; -Lyrica300 MG PO; -METOPROLOL TART5010 PO; -PROAIR RESPICL90 MCG INH; -Primidone50 MG PO; -TRAZ50 PO
[2024-06-16] MEDS ORDERED: Furosemide 10 MG / ML 2ML Vial IV ONE ×2 (20:25→22:00)
[2024-06-16] MEDS ORDERED: Lyrica300 MG PO ×2 (20:27)
[2024-06-16] MEDS ORDERED: METOPROLOL TART5010 PO ×2 (20:27)
[2024-06-16] MEDS ORDERED: PROAIR RESPICL90 MCG INH ×2 (20:28)
[2024-06-16] MEDS ORDERED: Primidone50 MG PO ×2 (20:29)
[2024-06-16] MEDS ORDERED: ATOR40TA PO (20:31)
[2024-06-16] MEDS ORDERED: Methocarbamol 500 MG Tab PO PRN (21:00)
[2024-06-16] MEDS ORDERED: Pregabalin 75 MG Cap PO SCH (21:00)
[2024-06-16] MEDS ORDERED: Primidone 50 MG Tab PO SCH (21:00)
[2024-06-16] MEDS ORDERED: Nitroglycerin 1 INCH/GM PKT TOP ONE (21:05)
[2024-06-16] MEDS ORDERED: Albuterol 2.5 MG/3 ML VIAL INH PRN (21:05)
[2024-06-16] MEDS ORDERED: Acetaminophen 325 MG TABLET PO PRN (21:20)
[2024-06-16] MEDS ORDERED: Ondansetron HCl 2 MG / ML 2ML Vial IV PRN (21:20)
[2024-06-16] MEDS ORDERED: HydrALAZINE HCl 20 MG / ML 1ML Vial IV PRN (21:20)
[2024-06-16] MEDS ORDERED: FLU VACC TS2024-25(6MOS UP)/PF 45 MCG/0.5 ML SYRINGE IM SCH (21:20)
[2024-06-16 21:22] LABS: Magnesium, Blood 2.2 mg/dL (1.6-2.4); Thyroid Stimulating Hormone 1.87 uIU/mL (0.360-4.800)
[2024-06-16 23:01] VITALS: BP 169/98
[2024-06-17 04:19] LABS: Hematocrit 43.2 % (37.0-53.0); Hemoglobin 14.5 g/dL (13.5-17.5); Mean Corpuscular HGB 32.7 pg (26.0-34.0); Mean Corpuscular HGB Conc 33.6 g/dL (31.5-36.5); Mean Corpuscular Volume 98 fL (80-100); Mean Platelet Volume 12.5 fL (9.1-12.4); Platelet Count 178 K/mm3 (150-400); RDW Coefficient Variation 13.3 % (11.7-14.2); RDW Standard Deviation 47.3 fL (35.1-46.3); Red Blood Cell Count 4.43 M/mm3 (4.30-5.90); White Blood Cell Count 7.59 K/mm3 (4.00-11.30)
[2024-06-17 04:25] VITALS: BP 150/87
[2024-06-17 04:34] LABS: Bun/Creatinine Ratio 14.2 (12.0-20.0); Calcium, Blood 8.6 mg/dL (8.5-10.1); Creatinine, Blood 1.2 mg/dL (0.60-1.20); Magnesium, Blood 2.3 mg/dL (1.6-2.4); Potassium, Blood 3.7 mmol/L (3.5-5.5)
[2024-06-17] MEDS ORDERED: Polyethylene Glycol 3350 17 gm PO PRN (08:10)
[2024-06-17 09:00] VITALS: BP 167/83
[2024-06-17] MEDS ORDERED: Enoxaparin 40 MG/0.4 ML SYR SC SCH (09:00)
[2024-06-17] MEDS ORDERED: Losartan Potassium 50 MG Tab PO SCH (09:00)
[2024-06-17] MEDS ORDERED: Atorvastatin 10 MG Tab PO SCH (09:00)
[2024-06-17] MEDS ORDERED: Furosemide 10 MG/ML 4ML Vial IV SCH (09:00)
[2024-06-17] MEDS ORDERED: Metoprolol Tartrate 25 MG Tab PO SCH (09:00)
[2024-06-17 10:42] VITALS: BP 158/81
[2024-06-17] MEDS ORDERED: Spironolactone 12.5 MG TAB PO SCH (11:34)
[2024-06-17] MEDS ORDERED: Spironolactone 25 MG Tab PO SCH (12:00)
--- NOTE | 2024-06-17 12:15 | NUR ---
TRANSFERED TO MEDICAL UNIT: NOTIFIED PATIENT OF TRANSFER TO MEDICAL UNIT. REPORT GIVEN TO KAREN Castle RN. PATIENT ABLE TO EAT LUNCH PRIOR TO TRANFER. VITALS STABLE. PATIENT CONTINUES TO BE STABLE ON 2L O2 VIA NC. PATIENT DENIED NEEDS PRIOR TO TRANSFER. PATIENT STABLE AT TIME OF TRANSFER.
[2024-06-17 15:19] VITALS: BP 156/91
--- NOTE | 2024-06-17 17:46 | NUR ---
PATIENT A/OX4, UP WITH FWW AND SBA. VSS, 2LO2 TO MAINTAIN SATS. DIURESING, STRICT I/O'S. SKIN INTACT. SR ON TELEMETRY, DENIES ANY CHEST PAIN OR PRESSURE. TOLERATING CARDIAC DIET. PLEASANT AND COOPERATIVE WITH CARE, CALLS APPROPRIATELY FOR ASSISTANCE.
[2024-06-17 20:13] VITALS: BP 151/89
[2024-06-17] MEDS ORDERED: Docusate Sodium/Senna 1 Tab PO SCH (21:00)
[2024-06-18 05:13] VITALS: BP 144/85
[2024-06-18 05:57] LABS: Hematocrit 44.1 % (37.0-53.0); Hemoglobin 14.6 g/dL (13.5-17.5); Mean Corpuscular HGB 32.5 pg (26.0-34.0); Mean Corpuscular HGB Conc 33.1 g/dL (31.5-36.5); Mean Corpuscular Volume 98 fL (80-100); Mean Platelet Volume 12.7 fL (9.1-12.4); Platelet Count 165 K/mm3 (150-400); RDW Coefficient Variation 13.2 % (11.7-14.2); Red Blood Cell Count 4.49 M/mm3 (4.30-5.90); White Blood Cell Count 6.13 K/mm3 (4.00-11.30)
--- NOTE | 2024-06-18 06:06 | NUR ---
Patient alert and oriented, VSS, resting comfortably in bed overnight. Telemetry in place, displaying A. Fib rate 80's, tolerating 2L oxygen via nasal cannula. Patient anticipating discharge sometime today.
[2024-06-18 06:24] LABS: Albumin, Blood 3.3 g/dL (3.4-5.0); Anion Gap 10 mmol/L (3-11); Blood Urea Nitrogen 17 mg/dL (8-24); Bun/Creatinine Ratio 14.9 (12.0-20.0); CO2, Blood 28 mmol/L (21-32); Calcium, Blood 8.5 mg/dL (8.5-10.1); Chloride, Blood 108 mmol/L (98-108); Creatinine, Blood 1.14 mg/dL (0.60-1.20); Glomerular Filtration Rate 69 (60-); Glucose, Blood 104 mg/dL (70-99); Magnesium, Blood 2.3 mg/dL (1.6-2.4); Phosphorus, Blood 3.6 mg/dL (2.5-4.9); Potassium, Blood 3.7 mmol/L (3.5-5.5); Sodium, Blood 142 mmol/L (136-145)
--- NOTE | 2024-06-18 06:36 | NUR ---
This RN notified by Kelly, industrial waste treatment technician, regarding patient converting from prior sinus rhythm to new A. Fib rate in 80-90's aroung midnight this morning. Patient asymptomatic, VSS. Dr. Xiao notified by RN, no new orders at this time.
[2024-06-18 07:37] VITALS: BP 166/100
[2024-06-18 16:03] VITALS: BP 128/83
--- NOTE | 2024-06-18 16:16 | NUR ---
SHIFT SUMMARY; TRIAL OF PATIENT ON ROOM AIR. SHOWED PATIENT WITH O2 SAT OF 78% AFTER 10 MINUTES. PER PATEINT HE DID NOT FEEL SOB. ALSO PATIENT WAS IN AFIB 80'S UNTIL 1402 WHEN HE CONVERTED TO SINUS DINORAH AT 57. PATIENT WORKED WITH PT AND OT TODAY. FAMILY AT BEDSIDE. PATIENT HAS PLEASANT AFFECT AND IS COOPERATIVE WITH CARE. HIS VITAL SIGNS ARE WNL AND STABLE. HE IS AO X 4. LUNGS ARE DIM BUT CLEAR. HE DENIES ANY PAIN OR DISCOMFORT. WILL CONTINUE TO MONITOR THIS PATIENT CLOSELY UNTIL REPORT AND HAND OFF TO NOC SHIFT RN.
[2024-06-18] MEDS ORDERED: TRAZ50 PO ×2 (18:11)
[2024-06-18 19:07] VITALS: BP 136/83
[2024-06-18] MEDS ORDERED: Pregabalin 50 MG Capsule PO SCH (21:00)
[2024-06-18] MEDS ORDERED: Apixaban 5 MG Tab PO SCH (21:00)
--- NOTE | 2024-06-19 03:58 | NUR ---
SHIFT SUMMARY PT IS A 73 YEAR OLD FULL CODE, A&OX4 WHO WAS ADMITTED FOR NEW ONSET CHF. PT HAS BEEN PLEASANT THROUGH OUT THE SHIFT. PT HAS TENDER FEET AND LEGS FROM HIS NEUROPATHY. PT IS ONE ASSIST WITH FWW AND MOMENTS OF INCONTINENCE. PT IS ON 2L OF OXYGEN AND HAS SLEEP APNEA BUT DOES NOT USE A C-PAP MASK AT HOME. PT IS ON TELE SR IN THE 60'S. PT WEARS GLASSES AND IS NONDALTON WITH FLAT AFFECT. PT HAS BEEN RESTING MOST OF THE NIGHT SND CALLS ALPHONSOIATLEY. CALL LIGHT IN REACH.
[2024-06-19 04:00] VITALS: BP 151/78
[2024-06-19 05:41] LABS: Hemoglobin 14.6 g/dL (13.5-17.5); Mean Corpuscular HGB 32.7 pg (26.0-34.0); Mean Corpuscular HGB Conc 33.2 g/dL (31.5-36.5); Mean Corpuscular Volume 98 fL (80-100); Mean Platelet Volume 11.8 fL (9.1-12.4); Platelet Count 175 K/mm3 (150-400); RDW Coefficient Variation 13.2 % (11.7-14.2); RDW Standard Deviation 47.7 fL (35.1-46.3); Red Blood Cell Count 4.47 M/mm3 (4.30-5.90); White Blood Cell Count 7.16 K/mm3 (4.00-11.30)
[2024-06-19 06:01] LABS: Albumin, Blood 3.5 g/dL (3.4-5.0); Anion Gap 10 mmol/L (3-11); Blood Urea Nitrogen 17 mg/dL (8-24); Bun/Creatinine Ratio 14.2 (12.0-20.0); CO2, Blood 28 mmol/L (21-32); Chloride, Blood 109 mmol/L (98-108); Glomerular Filtration Rate 65 (60-); Glucose, Blood 96 mg/dL (70-99); Magnesium, Blood 2.2 mg/dL (1.6-2.4); Phosphorus, Blood 2.8 mg/dL (2.5-4.9); Potassium, Blood 3.8 mmol/L (3.5-5.5); Sodium, Blood 143 mmol/L (136-145)
[2024-06-19 07:28] VITALS: BP 155/84
[2024-06-19] MEDS ORDERED: Furosemide 20 MG Tab PO SCH (09:00)
[2024-06-19] MEDS ORDERED: Spironolactone 25 MG Tab PO SCH (09:00)
[2024-06-19] MEDS ORDERED: ELIQUIS5 M2 PO ×2 (13:38)
[2024-06-19] MEDS ORDERED: DOCUZEN 8.6-501 EACH PO ×2 (13:39)
[2024-06-19] MEDS ORDERED: ALDACTONE25 MG PO ×2 (13:40)
--- NOTE | 2024-06-19 16:59 | NUR ---
DISCHARGE SUMMARY PATIENT DISCHARGED THIS SHIFT WITH DAJA TO DRIVE. DISCHARGE PACKET GIVEN AND REVIEWED, VERBALIZED UNDERSTANDING. HF EDUCATION REVIEWED, VERBALIZED UNDERSTANDING, QUESTIONS ANSWERED. IV REMOVED PRIOR WITHOUT COMPLICATION. PERSONAL WALKER SENT WITH PATIENT.
== END 2024-06-19 16:36 | disposition home health service (06) | DRG 291 ==
LOC: ER 17:00 → MEDS 21:15 → PCU 21:15 → MEDS 06-17 12:20 → ENPENDDIS 06-19 12:49 → MEDS 06-19 16:36
PROVIDERS: Internal Medicine; Nurse Practitioner Acute Care; ADMIT Student in an Organized Health Care Education/Training Program
DX: I11.0 Hypertensive heart disease with heart failure (principal); I50.23 Acute on chronic systolic (congestive) heart failure; J96.01 Acute respiratory failure with hypoxia; I25.10 Atherosclerotic heart disease of native coronary artery without angina pectoris; I10 Essential (primary) hypertension; Z86.73 Personal history of transient ischemic attack (TIA), and cerebral infarction without residual deficits; G47.33 Obstructive sleep apnea (adult) (pediatric); F41.9 Anxiety disorder, unspecified; Z79.899 Other long term (current) drug therapy; Z88.8 Allergy status to other drugs, medicaments and biological substances; Z91.011 Allergy to milk products; I16.0 Hypertensive urgency; I48.91 Unspecified atrial fibrillation; I25.2 Old myocardial infarction; E78.5 Hyperlipidemia, unspecified; G62.9 Polyneuropathy, unspecified; Z90.49 Acquired absence of other specified parts of digestive tract; Z95.5 Presence of coronary angioplasty implant and graft; Z95.1 Presence of aortocoronary bypass graft
CPT/HCPCS: 36415; 71046; 80048; 80069; 83735; 83880; 84443; 84484; 85027; 93005; 93010; 94640; 94664; 94761; 94762; 96374; 97110-CQ; 97116; 97116-CQ; 97162; 97530; 99285-25; A9270; C8929; J1650; J1940; Q9957

== ENCOUNTER → 2024-06-16 | Outpatient (CLI) | payer OTHER ==
[~2024-06-16] MED LIST changes: +ALDACTONE25 MG PO; +ATOR40TA PO; +DOCUZEN 8.6-501 EACH PO; +ELIQUIS5 M2 PO; +Lyrica300 MG PO; +METOPROLOL TART5010 PO; +PROAIR RESPICL90 MCG INH; +Primidone50 MG PO; +TRAZ50 PO
[2024-06-16 15:49] LABS: BASOPHILS ABSOLUTE AUTO 0.06 K/mm3 (0.00-0.23); BASOPHILS PERCENT AUTO 1 % (0-2); EOSINOPHILS PERCENT AUTO 1 % (0-6); Hematocrit 44.2 % (37.0-53.0); Hemoglobin 15.1 g/dL (13.5-17.5); IMMATURE GRAN ABSOLUTE AUTO 0.02 K/mm3 (0.00-0.10); IMMATURE GRAN PERCENT AUTO 0 % (0-1); LYMPHOCYTES ABSOLUTE AUTO 1.44 K/mm3 (0.84-5.20); LYMPHOCYTES PERCENT AUTO 17 % (21-46); MONOCYTES ABSOLUTE AUTO 0.66 K/mm3 (0.16-1.47); MONOCYTES PERCENT AUTO 8 % (4-13); Mean Corpuscular HGB 32.5 pg (26.0-34.0); Mean Corpuscular HGB Conc 34.2 g/dL (31.5-36.5); Mean Corpuscular Volume 95 fL (80-100); Mean Platelet Volume 12.3 fL (9.1-12.4); NEUTROPHILS ABSOLUTE AUTO 6.45 K/mm3 (1.96-9.15); NEUTROPHILS PERCENT AUTO 74 % (41-73); Platelet Count 206 K/mm3 (150-400); RDW Coefficient Variation 13.3 % (11.7-14.2); RDW Standard Deviation 46.5 fL (35.1-46.3); Red Blood Cell Count 4.64 M/mm3 (4.30-5.90); White Blood Cell Count 8.73 K/mm3 (4.00-11.30)
[2024-06-16 15:57] LABS: Albumin/Globulin Ratio 1.1 (0.8-1.8); Bilirubin, Total 0.8 mg/dL (0.1-1.0); Bun/Creatinine Ratio 11.9 (12.0-20.0); Creatinine, Blood 1.26 mg/dL (0.60-1.20); Globulin, Blood 3.5 g/dL (2.2-4.0); Potassium, Blood 4.6 mmol/L (3.5-5.5); Total Protein, Blood 7.5 g/dL (6.4-8.2)
== END ==
LOC: LAB 15:43 → LAB SHORT 15:43
PROVIDERS: Family Medicine
DX: I10 Essential (primary) hypertension (principal); R06.02 Shortness of breath
CPT/HCPCS: 80053; 83880; 85025

== ENCOUNTER 2024-08-12 09:59 | Observation (INO) | payer OTHER ==
[~2024-08-12] VITALS: Ht 190.5 cm; Wt 121.2 kg
[~2024-08-12 09:59] MED LIST changes: +ALDACTONE25 MG PO; +ATOR40TA PO; +DOCUZEN 8.6-501 EACH PO; +ELIQUIS5 M2 PO; +Lyrica300 MG PO; +METOPROLOL TART5010 PO; +PROAIR RESPICL90 MCG INH; +Primidone50 MG PO; +TRAZ50 PO
[2024-08-12 10:35] LABS: BASOPHILS ABSOLUTE AUTO 0.05 K/mm3 (0.00-0.23); BASOPHILS PERCENT AUTO 1 % (0-2); EOSINOPHILS ABSOLUTE AUTO 0.08 K/mm3 (0.00-0.68); EOSINOPHILS PERCENT AUTO 1 % (0-6); Hematocrit 48.5 % (37.0-53.0); Hemoglobin 16.2 g/dL (13.5-17.5); IMMATURE GRAN ABSOLUTE AUTO 0.01 K/mm3 (0.00-0.10); IMMATURE GRAN PERCENT AUTO 0 % (0-1); LYMPHOCYTES ABSOLUTE AUTO 1.88 K/mm3 (0.84-5.20); LYMPHOCYTES PERCENT AUTO 29 % (21-46); MONOCYTES ABSOLUTE AUTO 0.69 K/mm3 (0.16-1.47); MONOCYTES PERCENT AUTO 11 % (4-13); Mean Corpuscular HGB 32.4 pg (26.0-34.0); Mean Corpuscular HGB Conc 33.4 g/dL (31.5-36.5); Mean Corpuscular Volume 97 fL (80-100); Mean Platelet Volume 11.8 fL (9.1-12.4); NEUTROPHILS ABSOLUTE AUTO 3.82 K/mm3 (1.96-9.15); NEUTROPHILS PERCENT AUTO 58 % (41-73); Platelet Count 212 K/mm3 (150-400); RDW Standard Deviation 46.1 fL (35.1-46.3); White Blood Cell Count 6.53 K/mm3 (4.00-11.30)
[2024-08-12 10:48] LABS: Albumin, Blood 3.7 g/dL (3.4-5.0); Albumin/Globulin Ratio 1.1 (0.8-1.8); Bilirubin, Total 0.8 mg/dL (0.1-1.0); Bun/Creatinine Ratio 14.9 (12.0-20.0); Calcium, Blood 8.8 mg/dL (8.5-10.1); Creatinine, Blood 1.34 mg/dL (0.60-1.20); Globulin, Blood 3.5 g/dL (2.2-4.0); Potassium, Blood 4.5 mmol/L (3.5-5.5); Total Protein, Blood 7.2 g/dL (6.4-8.2)
[2024-08-12] MEDS ORDERED: FLU VACC TS2024-25(6MOS UP)/PF 45 MCG/0.5 ML SYRINGE IM ONE (12:55)
[2024-08-12] MEDS ORDERED: Aminophylline 250MG / 10ML 10 ML Vial ONE (13:32)
[2024-08-12] MEDS ORDERED: Regadenoson 0.4 MG/5 ML SYRINGE ONE (13:32)
[2024-08-12] MEDS ORDERED: TraZODone HCl 50 MG Tab PO PRN (17:40)
[2024-08-12] MEDS ORDERED: FARXIGA10 MG PO (19:34)
[2024-08-12 20:16] VITALS: BP 132/75
[2024-08-12] MEDS ORDERED: Metoprolol Tartrate 50 MG Tab PO SCH (21:00)
[2024-08-12] MEDS ORDERED: Gabapentin 300 MG Cap PO SCH (21:00)
[2024-08-12] MEDS ORDERED: Pregabalin 50 MG Capsule PO ONE (22:40)
--- NOTE | 2024-08-12 23:56 | NUR ---
ADMIT NOTE 73 YR OLD MALE ADMITTED TO FLOOR FROM THE ED WITH DX OF CHEST PAIN. HAD STRESS TEST IN THE ED PRIOR TO ADMISSION BUT STILL WWAITING DETAILS. ALERT AND ORIENTED X 4, VOICED SOME CONFUSION, BUT THEN STARTED JOKING WITH STAFF AND FAMILY AT BEDSIDE. DENIES CHEST PAIN. VSS. PLACED ON [employer] TELE TO MONITOR. ORIENTED TO USE OF CALL LIGHT AND BED CONTROL. AGREES TO UE CALL LIGHT IF NEEDING TO GET OOB. BLE DECREASED SENSATION AND MOVEMENT, VOICED HX CVA. STATES HAS MILK ALLERGY, BUT CAN TAKE LYRICA WITHOUT PROBLEMS, PHARMACY NOTIFIED. CALL LIGHT IN REACH. WILL MONITOR
--- NOTE | 2024-08-13 03:38 | NUR ---
DEVELOPMENT ARCHITECT SUMMARY VSS. ADMITTED EARLIER IN THE SHIFT WITH DX OF CHEST PAIN. REPORTEDLY HAD STRESS TEST IN THE ED BUT WAS ADMITTED TO FLOOR RATHER THAN DISCHARGING DUE TO HX CARDIAC ISSUES. HAS DENIED CHEST PAINS SINCE ADMISSION. JOKES WITH STAFF OCCASIONALLY. [facility] IN USE - SINUS DINORAH CURRENTLY AT 55. ASYMPTOMATIC. RESTING QUIETLY WITH FEW INTEERRUPTIONS. ON CARDIAC DIET WITH DAIRY PRODUCTS HELD DUE TO ALLERGIES. SKIN ASSESSMENT WNL WITH EXCEPTION OF GROIN RASH. MD NOTIFIED AND MEDICATION ORDERED. ORIENTED TO USE OF CALL LIGHT, CALL LIGHT IN REACH, RAILS UP X 2 AND BED IN LOW POSITOIN FOR SAFEATY. BE ALARM ON WELL. WILL CONTINUE TO MONITOR
[2024-08-13 04:43] VITALS: BP 151/69
[2024-08-13 05:05] LABS: BASOPHILS ABSOLUTE AUTO 0.04 K/mm3 (0.00-0.23); BASOPHILS PERCENT AUTO 1 % (0-2); EOSINOPHILS ABSOLUTE AUTO 0.11 K/mm3 (0.00-0.68); EOSINOPHILS PERCENT AUTO 2 % (0-6); Hematocrit 44.8 % (37.0-53.0); Hemoglobin 14.9 g/dL (13.5-17.5); IMMATURE GRAN ABSOLUTE AUTO 0.02 K/mm3 (0.00-0.10); IMMATURE GRAN PERCENT AUTO 0 % (0-1); LYMPHOCYTES ABSOLUTE AUTO 2.13 K/mm3 (0.84-5.20); LYMPHOCYTES PERCENT AUTO 35 % (21-46); MONOCYTES ABSOLUTE AUTO 0.68 K/mm3 (0.16-1.47); MONOCYTES PERCENT AUTO 11 % (4-13); Mean Corpuscular HGB 32.3 pg (26.0-34.0); Mean Corpuscular HGB Conc 33.3 g/dL (31.5-36.5); Mean Corpuscular Volume 97 fL (80-100); Mean Platelet Volume 11.6 fL (9.1-12.4); NEUTROPHILS ABSOLUTE AUTO 3.14 K/mm3 (1.96-9.15); NEUTROPHILS PERCENT AUTO 51 % (41-73); Platelet Count 177 K/mm3 (150-400); RDW Coefficient Variation 12.8 % (11.7-14.2); RDW Standard Deviation 46.1 fL (35.1-46.3); Red Blood Cell Count 4.62 M/mm3 (4.30-5.90); White Blood Cell Count 6.12 K/mm3 (4.00-11.30)
[2024-08-13 05:30] LABS: Albumin, Blood 3.2 g/dL (3.4-5.0); Bilirubin, Total 0.4 mg/dL (0.1-1.0); Bun/Creatinine Ratio 16.2 (12.0-20.0); Calcium, Blood 8.5 mg/dL (8.5-10.1); Creatinine, Blood 1.17 mg/dL (0.60-1.20); Globulin, Blood 3.2 g/dL (2.2-4.0); Total Protein, Blood 6.4 g/dL (6.4-8.2)
[2024-08-13 07:12] VITALS: BP 142/83
[2024-08-13] MEDS ORDERED: Losartan Potassium 50 MG Tab PO SCH (09:00)
[2024-08-13] MEDS ORDERED: Atorvastatin 40 MG Tab PO SCH (09:00)
[2024-08-13] MEDS ORDERED: Pregabalin 50 MG Capsule PO SCH (09:00)
[2024-08-13] MEDS ORDERED: DULoxetine HCL 60 MG Capsule DR PO SCH (09:00)
[2024-08-13] MEDS ORDERED: Miconazole Nitrate 2% 85 GM PWD TOP SCH (09:00)
[2024-08-13] MEDS ORDERED: Spironolactone 25 MG Tab PO SCH (09:00)
[2024-08-13] MEDS ORDERED: SPIR25 PO (11:43)
--- NOTE | 2024-08-13 12:28 | NUR ---
DISCHARGE NOTE: WENT OVER DISCHARGE WITH PATIENT AND HIS MEL. PATIENT IV AND TELE REMOVED. PATIENT GOT HIMSELF DRESSED AND GATHERED BELONGINGS. PATIENT TAKEN DOWN IN WHEELCHAIR. NO SIGNS OR SYMPTOMS OF DISTRESS DURING DISCHARGE.
== END 2024-08-13 12:25 | disposition home or self-care (01) ==
LOC: ER 09:59 → MEDS 10:00 → ENPENDDIS 08-13 11:22 → MEDS 08-13 12:25
PROVIDERS: Physician Assistant; ADMIT Internal Medicine
DX: I25.118 Atherosclerotic heart disease of native coronary artery with other forms of angina pectoris (principal); I48.0 Paroxysmal atrial fibrillation; E78.5 Hyperlipidemia, unspecified; I11.0 Hypertensive heart disease with heart failure; I50.42 Chronic combined systolic (congestive) and diastolic (congestive) heart failure; G47.33 Obstructive sleep apnea (adult) (pediatric); F32.A Depression, unspecified; Z79.899 Other long term (current) drug therapy; Z86.73 Personal history of transient ischemic attack (TIA), and cerebral infarction without residual deficits; Z87.891 Personal history of nicotine dependence; Z88.8 Allergy status to other drugs, medicaments and biological substances; Z91.011 Allergy to milk products; Z95.1 Presence of aortocoronary bypass graft; Z99.89 Dependence on other enabling machines and devices
CPT/HCPCS: 36415; 71046; 80053; 83690; 84484; 85025; 93005; 93010; 99285-25; A9270; G0378; J0280; J2785

== ENCOUNTER 2024-11-11 13:45 | Day surgery (SDC) | payer OTHER ==
[~2024-11-11] VITALS: Ht 190.5 cm; Wt 115.0 kg
[~2024-11-11 13:45] MED LIST changes: +FARXIGA10 MG PO; -Lyrica300 MG PO; +MULTI-VITAMIN1 EAC2 PO; +PREG75 PO; +Robaxin750 MG PO; +SPIR25 PO
[2024-11-11 14:00] VITALS: BP 187/105
--- NOTE | 2024-11-11 14:00 | NUR ---
INTO SDS VIA WHEELCHAIR. PT IS MODERATE ASSIST FOR TRANSFERS. HISTORY AND ALLERGIES REVIEWED. NO NOTED SOB. SATS 97% ON RA. NPO STATUS CONFIRMED. COLON PREP CONFIRMED. PT SPOUSE IS RIDE HOME TODAY.
[2024-11-11] MEDS ORDERED: Etomidate 2MG / ML 10ML Vial ONE (14:12)
[2024-11-11] MEDS ORDERED: propofoL 60 ML IV ONE (14:13)
[2024-11-11] MEDS ORDERED: Lactated Ringer's 1,000 ML IV ONE (14:17)
[2024-11-11] MEDS ORDERED: Lactated Ringer's 1,000 ML IV SCH (14:20)
[2024-11-11] MEDS ORDERED: Metoprolol Tartrate 5 ML IV ONE (14:20)
--- NOTE | 2024-11-11 14:38 | NUR ---
11/11/24 1438 Astrid Null MONITOR INTACT WITH CONTINUOUS PULSE OXIMETRY, CONTINUOUS END TITAL CO2, 3-LEAD EKG AND INTERMITTENT BLOOD PRESSURE.
[2024-11-11 15:15] VITALS: BP 136/91
--- NOTE | 2024-11-11 15:20 | NUR ---
REPORT RECEIVED FROM BENTON YEN. VSS. PT ON RA. PT A&OX4. PT ABLE TO REPOSITION SELF IN BED. PT REQUESTING PO FLUIDS AND TOLERATING THEM WELL. PT DENIES PAIN, NAUSEA OR OTHER DISCOMFORTS.
[2024-11-11 15:30] VITALS: BP 164/89
== END 2024-11-11 15:45 | disposition home or self-care (01) ==
LOC: ORSCMMR 13:45 → ORD 13:45 → ORSCMMR 13:51
PROVIDERS: Surgery
PROC: 0DJD8ZZ Inspection of Lower Intestinal Tract, Via Natural or Artificial Opening Endoscopic (ICD-10-PCS; principal; 2024-11-11 13:45)
DX: Z12.11 Encounter for screening for malignant neoplasm of colon (principal); K57.30 Diverticulosis of large intestine without perforation or abscess without bleeding; R19.5 Other fecal abnormalities; Z86.0100 Personal history of colon polyps, unspecified; I25.10 Atherosclerotic heart disease of native coronary artery without angina pectoris; Z95.1 Presence of aortocoronary bypass graft; I48.91 Unspecified atrial fibrillation; F41.9 Anxiety disorder, unspecified; F03.90 Unspecified dementia, unspecified severity, without behavioral disturbance, psychotic disturbance, mood disturbance, and anxiety; I10 Essential (primary) hypertension; E78.5 Hyperlipidemia, unspecified; I25.2 Old myocardial infarction; G47.33 Obstructive sleep apnea (adult) (pediatric); Z86.73 Personal history of transient ischemic attack (TIA), and cerebral infarction without residual deficits; E66.9 Obesity, unspecified; Z68.31 Body mass index [BMI] 31.0-31.9, adult; Z79.01 Long term (current) use of anticoagulants; Z79.899 Other long term (current) drug therapy; Z87.891 Personal history of nicotine dependence
CPT/HCPCS: J2704; J7120

== ENCOUNTER 2025-09-10 19:13 | Emergency (ER) | payer OTHER ==
[~2025-09-10] VITALS: Ht 190.5 cm; Wt 112.5 kg
[2025-09-10 20:12] LABS: BASOPHILS ABSOLUTE AUTO 0.04 K/mm3 (0.00-0.23); BASOPHILS PERCENT AUTO 0 % (0-2); EOSINOPHILS ABSOLUTE AUTO 0.06 K/mm3 (0.00-0.68); EOSINOPHILS PERCENT AUTO 1 % (0-6); Hematocrit 50.9 % (37.0-53.0); Hemoglobin 16.8 g/dL (13.5-17.5); IMMATURE GRAN ABSOLUTE AUTO 0.02 K/mm3 (0.00-0.10); IMMATURE GRAN PERCENT AUTO 0 % (0-1); LYMPHOCYTES ABSOLUTE AUTO 1.96 K/mm3 (0.84-5.20); LYMPHOCYTES PERCENT AUTO 20 % (21-46); MONOCYTES ABSOLUTE AUTO 0.80 K/mm3 (0.16-1.47); MONOCYTES PERCENT AUTO 8 % (4-13); Mean Corpuscular HGB Conc 33.0 g/dL (31.5-36.5); Mean Corpuscular Volume 100 fL (80-100); NEUTROPHILS ABSOLUTE AUTO 7.06 K/mm3 (1.96-9.15); NEUTROPHILS PERCENT AUTO 71 % (41-73); NRBC ABSOLUTE 0.00 K/mm3 (0.00-0.02); NRBC Auto 0.0 /100 WBC (0.0-0.2); Platelet Count 188 K/mm3 (150-400); RDW Coefficient Variation 13.0 % (11.7-14.2); RDW Standard Deviation 47.8 fL (35.1-46.3)
[2025-09-10 20:28] LABS: Alanine Aminotransfer (ALT/SGP 50.0 U/L (12-78); Albumin, Blood 4.2 g/dL (3.4-5.0); Albumin/Globulin Ratio 1.2 (0.8-1.8); Anion Gap 8.0 mmol/L (3-11); Aspartate Aminotrans (AST/SGOT 27.0 U/L (12-37); Bilirubin, Total 0.6 mg/dL (0.1-1.0); Blood Urea Nitrogen 23.0 mg/dL (8-24); CO2, Blood 25.0 mmol/L (21-32); Calcium, Blood 9.1 mg/dL (8.5-10.1); Chloride, Blood 110.0 mmol/L (98-108); Creatinine, Blood 1.69 mg/dL (0.60-1.20); Globulin, Blood 3.4 g/dL (2.2-4.0); Glucose, Blood 93.0 mg/dL (70-99); Potassium, Blood 4.8 mmol/L (3.5-5.5); Sodium, Blood 138.0 mmol/L (136-145); Total Protein, Blood 7.6 g/dL (6.4-8.2)
[2025-09-10] MEDS ORDERED: Morphine Sulfate 4 MG/1 ML Injection IV ONE (22:00)
[2025-09-10] MEDS ORDERED: Ondansetron HCl 2 MG / ML 2ML Vial IV ONE (22:00)
[2025-09-11 09:00] VITALS: BP 129/70
== END 2025-09-11 09:15 | disposition home or self-care (01) ==
LOC: ER 19:13
PROVIDERS: Physician Assistant
DX: S06.6XAA Traumatic subarachnoid hemorrhage with loss of consciousness status unknown, initial encounter (principal); W17.89XA Other fall from one level to another, initial encounter; Z91.0110 Allergy to milk products, unspecified; Z79.01 Long term (current) use of anticoagulants; Z79.899 Other long term (current) drug therapy; I10 Essential (primary) hypertension; E78.5 Hyperlipidemia, unspecified
CPT/HCPCS: 12001; 70450; 80053; 85025; 93005; 93010; 96374-59; 96375-59; 99284-25; A9270; J2270; J2405